=== PATIENT | female | born 1980 | race Caucasian/White ===

== ENCOUNTER 2020-05-17 23:16 | Emergency (ER) | payer MEDICAID ==
[~2020-05-17] VITALS: Ht 165.1 cm; Wt 77.1 kg
[2020-05-17 23:24] VITALS: Ht 165.1 cm; Wt 77.1 kg
[2020-05-18 00:46] LABS: microscopic required? YES; urine erythrocyte 2+ (NEGATIVE)
[2020-05-18 01:06] LABS: BASOPHIL % 0.4 % (0.2-1.3); PLATELET COUNT 230 x10^3mcL (179-408); RED CELL DISTRIBUTION WIDTH 16.9 % (12.3-17.7)
[2020-05-18 01:07] LABS: rbc morphology (normal/abnorm) NORMAL (NORMAL)
[2020-05-18 01:16] LABS: CALCIUM 7.6 mg/dL (8.5-10.1); CARBON DIOXIDE 26.3 mmol/L (21-32); CHLORIDE SERUM 103 mmol/L (98-107); CREATININE SERUM 0.8 mg/dL (0.6-1.0); GFR1 > 60 mL/min; GLUCOSE SERUM 107 mg/dL (74-106); POTASSIUM SERUM 3.5 mmol/L (3.5-5.1); SODIUM SERUM 139 mmol/L (136-145)
[2020-05-18 01:22] LABS: ALBUMIN 3.8 g/dL (3.4-5.0); ALKALINE PHOSPHATASE 108 U/L (46-116); ALT/SGPT 17 U/L (14-59); AST/SGOT 22 U/L (15-37); BILIRUBIN TOTAL 0.44 mg/dL (0.20-1.00); LIPASE 124 IU/L (73-393); TOTAL PROTEIN, SERUM 7.2 g/dL (6.4-8.2)
[2020-05-18] MEDS ORDERED: IBU600 M2 PO (01:46)
[2020-05-18] MEDS ORDERED: BACLOFEN10 MG PO (01:46)
[2020-05-18 03:14] VITALS: BP 149/76
== END 2020-05-18 03:14 | disposition home or self-care (01) ==
LOC: ED 23:16
PROVIDERS: Emergency Medicine
DX: R10.31 Right lower quadrant pain (principal); M54.5 Low back pain
CPT/HCPCS: J1885; J2405; J7030